=== PATIENT | male | born 1980 | race Caucasian/White ===

== ENCOUNTER 2018-06-26 00:42 | Emergency (ER) | payer SELFPAY ==
[~2018-06-26] VITALS: Ht 177.8 cm; Wt 89.8 kg
[2018-06-26] MEDS ORDERED: NKM (01:00)
--- NOTE | 2018-06-26 01:20 | NUR ---
ED Nurse Note: Recieved pt with c/o left foot and heel pain, tp states has broken heel, was seen at [facility] yesterday and left facility ama, pt has splint cast on left foot area which appears to be falling off, pt states he did that, pt c/o pain to area at 7/10, deneis cp, sob or any other injuries or complaints, will resume care as ordered and continue to closely monitor.
[2018-06-26] MEDS ORDERED: IBUPROFEN600 MG ORAL (02:41)
--- NOTE | 2018-06-26 02:42 | Emergency Room Report ---
History of Present Illness General Chief Complaint: Lower Extremity Injury Source: Patient Present Illness HPI Is a 37-year-old male who is as with chief complaint of left heel pain. He was seen at [facility] a few days ago. He had jump off of a railing and sustained a fracture to his left heel. He had x-ray done and blood work done. He was placed in a splint. Because he is homeless his been walking on it causing the increasing pain. He also said that his platelet Messed up so he try to get back himself. No other complaint. Pain is 8 out of 10. No nausea no vomiting but no fever chills. Allergies: Coded Allergies: LATEX (Verified Allergy, Unknown, 06/26/18) SOYBEAN (Verified Allergy, Unknown, 06/26/18) Patient History Past Medical History: see triage record, old chart reviewed Past Surgical History: other Pertinent Family History: none Social History: Reports: drug use Immunizations: other Reviewed Nursing Documentation: PMH: Agreed; PSxH: Agreed Nursing Documentation-PMH Hx Neurological Problems: Yes - kidney failure Review of Systems Eye: Denies: eye pain, blurred vision ENT: Denies: ear pain, nose congestion, throat swelling Respiratory: Denies: cough, shortness of breath Cardiovascular: Denies: chest pain, palpitations Gastrointestinal: Denies: abdominal pain, diarrhea, nausea, vomiting Musculoskeletal: Reports: joint pain; Denies: back pain Skin: Denies: rash Neurological: Denies: headache, numbness Endocrine: Denies: increased thirst, increased urine Hematologic/Lymphatic: Denies: easy bruising All Other Systems: negative except mentioned in HPI Physical Exam Vital Signs Date Time Temp Pulse Resp B/P (MAP) Pulse Ox O2 Delivery O2 Flow Rate FiO2 06/26/18 00:53 98.4 89 16 152/93 94 Room Air vitals with high blood pressure Sp02 EP Interpretation: reviewed, normal General Appearance: well appearing, no apparent distress, alert Head: normocephalic, atraumatic Eyes: bilateral eye PERRL, bilateral eye EOMI ENT: hearing grossly normal, normal pharynx Neck: full range of motion, supple, no meningismus Respiratory: chest non-tender, lungs clear, normal breath sounds Cardiovascular #1: regular rate, rhythm, no murmur Gastrointestinal: normal bowel sounds, non tender, no mass, no organomegaly, no bruit, non-distended Musculoskeletal: back normal, gait/station normal, normal range of motion, other - Left leg is in a short leg and sugar tong splint. The dressing is all crumble up. Psychiatric: mood/affect normal Skin: warm/dry Procedures Splinting Splinting : Consent: Verbal Location: Left foot Hand-Made Type: plaster Splint: poserior short Pre-Proc Neuro Vasc Exam: normal Post-Proc Neuro Vasc Exam: normal Patient Tolerated: Well Complications: None Medical Decision Making Diagnostic Impression: Primary Impression: Calcaneus fracture, left Qualified Codes: S92.002A - Unspecified fracture of left calcaneus, initial encounter for closed fracture ER Course Patient with a calcaneus fracture. I took down the old splint have a new one placed. She probably procedure without a problem. No complication. See no need for re-x-rays. Last Vital Signs Date Time Temp Pulse Resp B/P (MAP) Pulse Ox O2 Delivery O2 Flow Rate FiO2 06/26/18 00:53 98.4 89 16 152/93 94 Room Air Status: improved Disposition: HOME, SELF-CARE Condition: Stable Scripts Ibuprofen* (MOTRIN*) 600 Mg Tablet 600 MG ORAL THREE TIMES A DAY, #30 TAB 0 Refills Prov: Boris Bloom MD 06/26/18 Additional Instructions: Elevate leg. Use crutches. Follow-up with orthopedic doctor within a week. Return if worse. Boris Bloom MD Jun 26, 2018 02:42
--- NOTE | 2018-06-26 03:00 | NUR ---
ED Nurse Note: pt left foot splint removed and new one applied, pt tolerated well, pt will stay and d/c in am per md.
--- NOTE | 2018-06-26 03:30 | NUR ---
ED Nurse Note: Received Pt and report from RN Aileen. Pt is asleep when visited, VSS.
--- NOTE | 2018-06-26 05:06 | NUR ---
ED Nurse Note: Pt now admits to being homeless. Options presented to him, including SW in the AM. Pt refuses any assisstance, and wants to go to where he is familiar ( and [place]).
[2018-06-26 05:28] VITALS: BP 148/89
--- NOTE | 2018-06-26 05:31 | NUR ---
Homeless Discharge: Patient is being discharged from medical care. Awake, alert and oriented x3. After care instructions, including referral to community resources were given but Pt refused. Patient verbalized understanding of After care instructions; at this time patient does not request medications, equipment. Patient refused to sign patient consent in the medical record for patient destination upon discharge. All medical devices such as ID band were removed. Patient ambulated out with all personal belongings with cruthes.
== END 2018-06-26 05:53 | disposition home or self-care (01) ==
LOC: EMR 01:30
DX: S92.002A Unspecified fracture of left calcaneus, initial encounter for closed fracture (principal); F17.200 Nicotine dependence, unspecified, uncomplicated; X58.XXXA Exposure to other specified factors, initial encounter; Y92.9 Unspecified place or not applicable; Z91.040 Latex allergy status; Z59.0 Homelessness; Z91.018 Allergy to other foods
CPT/HCPCS: 29515; 99283

== ENCOUNTER 2018-08-26 12:34 | Emergency (ER) | payer OTHER, SELFPAY ==
[~2018-08-26] VITALS: Ht 180.3 cm; Wt 85.3 kg
[~2018-08-26 12:34] MED LIST: IBUPROFEN600 MG ORAL; NKM
--- NOTE | 2018-08-26 12:34 | NUR ---
ED Nurse Note: Patient brought in by ambulance with [employer] and [employer] for medical clearance. patient is in custody. patient c/o backpain for 3 days. patient c/o dysuria. patient is alert awake x3 no sob skin no LOC.
--- NOTE | 2018-08-26 13:05 | NUR ---
ED Nurse Note: provided 2 cups of water, per Lili HAYES it's ok. provided urinal so that he can use urinal. [employer] at bedside.
[2018-08-26 13:08] VITALS: BP 120/81
--- NOTE | 2018-08-26 13:27 | NUR ---
ED Nurse Note: UA sent to lab
[2018-08-26 13:33] LABS: APPEARANCE,URINE CLEAR; BILIRUBIN, URINE NEGATIVE (NEGATIVE); COLOR,URINE BROWN; GLUCOSE, URINE (UA) NEGATIVE (NEGATIVE); KETONES,URINE NEGATIVE (NEGATIVE); LEUKOCYTE ESTERASE ,URINE 1+ (NEGATIVE); NITRITE,URINE NEGATIVE (NEGATIVE); PH,URINE 6 (4.5-8.0); PROTEIN,URINE 2+ (NEGATIVE); UROBILINOGEN,URINE 1 MG/DL (0.0-1.0)
--- NOTE | 2018-08-26 14:04 | Emergency Room Report ---
History of Present Illness General Chief Complaint: Medical Clearance Source: Patient, EMS Present Illness HPI 37-year-old male presents to the emergency department complaining of 6 out of 10 in severity dysuria progressive 3 days he states that he has a history of frequent UTIs in the past and has some kidney issues. Patient is here for medical clearance for incarceration. Patient denies other medical complaints at this time he denies chest pain, palpitations, shortness of breath, altered mental status, syncope, dizziness or headache. He denies hematuria, urinary frequency or urgency. Denies fevers or chills no nausea vomiting constipation or diarrhea. no aggravating or relieving factors at this time. Allergies: Coded Allergies: LATEX (Verified Allergy, Unknown, 06/26/18) SOYBEAN (Verified Allergy, Unknown, 06/26/18) Patient History Past Medical History: see triage record Past Surgical History: none Pertinent Family History: none Reviewed Nursing Documentation: PMH: Agreed; PSxH: Agreed Nursing Documentation-PMH Past Medical History: No Stated History Hx Neurological Problems: Yes - kidney failure Review of Systems All Other Systems: negative except mentioned in HPI Physical Exam Vital Signs Date Time Temp Pulse Resp B/P (MAP) Pulse Ox O2 Delivery O2 Flow Rate FiO2 08/26/18 12:30 98.4 102 18 123/80 99 Room Air Sp02 EP Interpretation: reviewed, normal General Appearance: no apparent distress, alert, GCS 15, non-toxic, other - grossly contaminated/ desheveled. Head: normocephalic, atraumatic Eyes: bilateral eye normal inspection, bilateral eye PERRL ENT: hearing grossly normal, normal voice Neck: full range of motion Respiratory: chest non-tender, lungs clear, normal breath sounds, speaking full sentences Cardiovascular #1: regular rate, rhythm, no edema, normal capillary refill Cardiovascular #2: 2+ radial (R), 2+ radial (L) Gastrointestinal: normal bowel sounds, non tender, soft Genitourinary: normal inspection, no CVA tenderness Musculoskeletal: gait/station normal, normal range of motion, non-tender Neurologic: alert, oriented x3, responsive, motor strength/tone normal, sensory intact, speech normal, grossly normal Psychiatric: judgement/insight normal, other - AGITATED -loud, obnoxious and verbally aggressive Skin: normal color, no rash, warm/dry, well hydrated Lymphatic: no adenopathy Medical Decision Making PA Attestation Dr. Price is my supervising Physician whom patient management has been discussed with. Diagnostic Impression: Primary Impression: Medical clearance for incarceration Additional Impression: Dysuria ER Course 37-year-old male presents to the emergency department complaining of 6 out of 10 in severity dysuria progressive 3 days he states that he has a history of frequent UTIs in the past and has some kidney issues. Patient is here for medical clearance for incarceration. Patient denies other medical complaints at this time he denies chest pain, palpitations, shortness of breath, altered mental status, syncope, dizziness or headache. He denies hematuria, urinary frequency or urgency. Denies fevers or chills no nausea vomiting constipation or diarrhea. no aggravating or relieving factors at this time. Ddx considered but are not limited to Head Trauma, TX, ACS, SI/HI, URI, SAH, Fractures, Dislocations, Tazer barbs, Abrasions. Vital signs: are WNL, pt. is afebrile H&PE are most consistent with: normal limited physical examination. - AGITATED - loud, obnoxious and verbally aggressive ORDERS: UA: no evidence of UTI ED INTERVENTIONS: -Ativan + beandryl -- pt. was very loud, obnoxious and verbally aggressive which lead to initiation DISCHARGE: At this time pt. is stable for d/c to law enforcement. Will provide printed patient care instructions, and any necessary prescriptions. Care plan and follow up instructions have been discussed with the patient prior to discharge. Labs Test 08/26/18 13:12 Urine Color Brown Urine Appearance Clear Urine pH 6 (4.5-8.0) Urine Specific [place] 1.015 (1.005-1.035) Urine Protein 2+ (NEGATIVE) Urine Glucose (UA) Negative (NEGATIVE) Urine Ketones Negative (NEGATIVE) Urine Blood Negative (NEGATIVE) Urine Nitrite Negative (NEGATIVE) Urine Bilirubin Negative (NEGATIVE) Urine Urobilinogen 1 MG/DL (0.0-1.0) Urine Leukocyte Esterase 1+ (NEGATIVE) Urine RBC 0 /HPF (0 - 0) Urine WBC 0-2 /HPF (0 - 0) Urine Squamous Epithelial Cells None /LPF (NONE/OCC) Urine Amorphous Sediment Moderate /LPF (NONE) Urine Bacteria Few /HPF (NONE) Last Vital Signs Date Time Temp Pulse Resp B/P (MAP) Pulse Ox O2 Delivery O2 Flow Rate FiO2 08/26/18 13:58 98.0 08/26/18 13:11 98 19 Room Air 08/26/18 13:08 120/81 99 Disposition: D/C TO LAW ENFORCEMENT IN [place] Condition: Stable Departure Forms: Care Home Clearance Patient Instructions: Medical Screening Exam Additional Instructions: Take any previously prescribed medications as directed. Follow up with a Primary Care Provider in 3-5 days, even if your symptoms have resolved. --Please review list of primary care clinics, if you do not already have a primary care provider Return sooner to ED if new symptoms occur, or current symptoms become worse. - Please note that this Emergency Department Report was dictated using [employer]ESAR[employer] runner technology software, occasionally this can lead to erroneous entry secondary to interpretation by the dictation equipment. Lili Spence Aug 26, 2018 14:04
[2018-08-26] MEDS ORDERED: DiphenhydrAMINE 50mg/ml Inj IM ONE (14:30)
[2018-08-26] MEDS ORDERED: LORazepam Inj 2mg/ml 1ml IM ONE (14:30)
[2018-08-26 14:32] VITALS: BP 121/87
--- NOTE | 2018-08-26 14:32 | NUR ---
ER DISCHARGE NOTE: Patient is cleared to be discharged per WYATT VALADEZ, pt is aox4, on room air, with stable vital signs. pt was given dc and prescription instructions, pt was able to verbalize understanding, pt id band removed without complications. pt is able to ambulate with steady gait. pt took all belongings.
== END 2018-08-26 14:32 ==
LOC: EDBD 12:34 → EMR 14:10
DX: R30.0 Dysuria (principal); Z91.040 Latex allergy status; Z91.018 Allergy to other foods; N19 Unspecified kidney failure; R45.1 Restlessness and agitation
CPT/HCPCS: 81003; 96372; 99283; J1200